=== PATIENT | female | born 1980 ===

== ENCOUNTER 2018-10-17 02:48 | Inpatient (IN) ==
[2018-10-17] MEDS ORDERED: SODIUM CHLORIDE 0.9% 1,000 ML IV STA (05:08)
[2018-10-17 05:25] LABS: Basophils % 0.5 % (0.0-0.8); Eosinophils # 0.1 10*3/uL (0.0-0.87); Eosinophils % 1.9 % (0.00-10.9); Hematocrit 36.6 VOL% (35.7-47.0); Immature Granulocytes % 0.3 %; Immature Granulocytes Absolute 0.02 #; Lymphocytes # 2.2 10*3/uL (1.4-4.0); Lymphocytes % 37.7 % (21.3-54.2); Mean Corpuscular HGB Conc 32.8 GM/DL (32-36); Mean Corpuscular Volume 86.1 FL (87-102); Mean Platelet Volume 10.9 FL (9.6-12.0); Monocytes % 6.6 % (1.7-12.7); Platelet Count 216 T/CUMM (130-400); Red Blood Count 4.25 MC/CUMM (3.8-5.5); Red Cell Distribution Width 14.1 % (9.3-17.3); White Blood Count 5.8 T/CUMM (4-12)
[2018-10-17 05:44] LABS: Alanine Aminotransferase 20 U/L (13-56); Albumin 3.3 G/DL (3.4-5.0); Alkaline Phosphatase 44 U/L (45-117); Aspartate Amino Transferase 11 U/L (0-37); Bilirubin,Total < 0.39 MG/DL (0.2-1.0); Blood Urea Nitrogen 32 MG/DL (7-18); Calcium 8.2 MG/DL (8.5-10.1); Glucose 88 MG/DL (74-106); Osmolality,Calculated 284.4 MOS/KG (273-304); Total Protein 7.5 G/DL (6.4-8.3)
[2018-10-17] MEDS ORDERED: GLUCAGON 1 MG VIAL IM PRN (08:06)
[2018-10-17] MEDS ORDERED: HYDROmorphone 2 MG/1 ML VIAL IV PRN (08:06)
[2018-10-17] MEDS ORDERED: ONDANSETRON 4 MG/2 ML VIAL IV PRN (08:06)
[2018-10-17] MEDS ORDERED: traZODone 50 MG TABLET PO PRN (08:06)
[2018-10-17] MEDS ORDERED: hydrALAZINE 20 MG/1 ML VIAL IV PRN (08:06)
[2018-10-17] MEDS ORDERED: DEXTROSE 10% 25 GM/250 ML BAG IV PRN (08:06)
[2018-10-17] MEDS: SODIUM CHLORIDE 0.9% 1,000 ML IV SCH (09:15)
[2018-10-17 11:59] LABS: PT Patient Result 11.1 SECS
[2018-10-17] MEDS ORDERED: INSULIN LISPRO 100 UNIT/ML SUBCUT SCH (12:00)
[2018-10-17] MEDS ORDERED: DIAZEPAM 5 MG TABLET PO ONE (13:53)
[2018-10-17] MEDS: INSULIN LISPRO 100 UNIT/ML SUBCUT SCH ×2 (18:06→21:27)
[2018-10-17] MEDS: METOPROLOL TARTRATE 25 MG TABLET PO SCH (21:27)
[2018-10-17] MEDS: ACETYLCYSTEINE 600 MG CAPSULE PO SCH (21:28)
[2018-10-18] MEDS: SODIUM CHLORIDE 0.9% 1,000 ML IV SCH ×2 (00:18→20:52)
[2018-10-18 05:27] LABS: Basophils % 0.7 % (0.0-0.8); Eosinophils # 0.1 10*3/uL (0.0-0.87); Eosinophils % 1.3 % (0.00-10.9); Hematocrit 31.7 VOL% (35.7-47.0); Hemoglobin 10.1 GM/DL (12.0-16.0); Immature Granulocytes % 0.4 %; Immature Granulocytes Absolute 0.02 #; Lymphocytes # 1.8 10*3/uL (1.4-4.0); Lymphocytes % 32.7 % (21.3-54.2); Mean Corpuscular HGB Conc 31.9 GM/DL (32-36); Mean Corpuscular Volume 86.6 FL (87-102); Mean Platelet Volume 11.2 FL (9.6-12.0); Monocytes % 7.1 % (1.7-12.7); Neutrophils % 57.8 % (38.7-73.9); Platelet Count 198 T/CUMM (130-400); Red Blood Count 3.66 MC/CUMM (3.8-5.5); Red Cell Distribution Width 14.1 % (9.3-17.3); White Blood Count 5.5 T/CUMM (4-12)
[2018-10-18 06:06] LABS: Calcium 7.6 MG/DL (8.5-10.1); Osmolality,Calculated 292.1 MOS/KG (273-304)
[2018-10-18 06:52] LABS: Hepatitis B Core IgM Quant 0.09 Index; Hepatitis B Surface Ag Quant < 0.10 Index; Hepatitis B Surface Ag Result Negative (Negative); Hepatitis C Virus Ab Quant 0.12 Index; Hepatitis C Virus Ab Result Negative (Negative)
[2018-10-18] MEDS: METOPROLOL TARTRATE 25 MG TABLET PO SCH ×2 (08:45→20:51)
[2018-10-18] MEDS: ACETYLCYSTEINE 600 MG CAPSULE PO SCH ×2 (08:45→20:51)
[2018-10-18] MEDS: INSULIN LISPRO 100 UNIT/ML SUBCUT SCH ×4 (08:46→20:51)
[2018-10-18] MEDS: ENOXAPARIN 40 MG/0.4 ML SYRINGE SUBCUT SCH (14:09)
[2018-10-19] MEDS: INSULIN LISPRO 100 UNIT/ML SUBCUT SCH ×4 (07:36→21:21)
[2018-10-19] MEDS: SODIUM CHLORIDE 0.9% 1,000 ML IV SCH ×2 (09:13→21:18)
[2018-10-19] MEDS: METOPROLOL TARTRATE 25 MG TABLET PO SCH ×2 (09:14→21:17)
[2018-10-19] MEDS: ACETYLCYSTEINE 600 MG CAPSULE PO SCH ×2 (09:14→21:21)
[2018-10-19] MEDS: ENOXAPARIN 40 MG/0.4 ML SYRINGE SUBCUT SCH (14:34)
[2018-10-20 04:58] LABS: Basophils % 0.5 % (0.0-0.8); Eosinophils # 0.1 10*3/uL (0.0-0.87); Eosinophils % 1.9 % (0.00-10.9); Immature Granulocytes % 0.4 %; Immature Granulocytes Absolute 0.02 #; Lymphocytes # 2.5 10*3/uL (1.4-4.0); Lymphocytes % 43.8 % (21.3-54.2); Mean Corpuscular HGB Conc 32.3 GM/DL (32-36); Mean Corpuscular Volume 86.6 FL (87-102); Mean Platelet Volume 11.4 FL (9.6-12.0); Neutrophils % 47.4 % (38.7-73.9); Platelet Count 194 T/CUMM (130-400); Red Blood Count 3.58 MC/CUMM (3.8-5.5); Red Cell Distribution Width 14.1 % (9.3-17.3); White Blood Count 5.7 T/CUMM (4-12)
[2018-10-20 05:30] LABS: Calcium 7.6 MG/DL (8.5-10.1)
[2018-10-20] MEDS: METOPROLOL TARTRATE 25 MG TABLET PO SCH ×2 (08:25→21:08)
[2018-10-20] MEDS: INSULIN LISPRO 100 UNIT/ML SUBCUT SCH ×4 (08:26→21:07)
[2018-10-20] MEDS: SODIUM CHLORIDE 0.9% 1,000 ML IV SCH (09:22)
[2018-10-20] MEDS: ACETYLCYSTEINE 600 MG CAPSULE PO SCH ×2 (10:50→21:08)
[2018-10-20] MEDS: ENOXAPARIN 40 MG/0.4 ML SYRINGE SUBCUT SCH (14:02)
[2018-10-20] MEDS: POLYETHYLENE GLYCOL POWDER 17 GM PACK PO SCH (17:21)
[2018-10-20] MEDS: DOCUSATE SODIUM 100 MG CAPSULE PO SCH (21:08)
[2018-10-21] MEDS: INSULIN LISPRO 100 UNIT/ML SUBCUT SCH ×4 (08:27→20:29)
[2018-10-21] MEDS: METOPROLOL TARTRATE 25 MG TABLET PO SCH ×2 (08:27→20:28)
[2018-10-21] MEDS: DOCUSATE SODIUM 100 MG CAPSULE PO SCH ×2 (08:27→20:28)
[2018-10-21] MEDS: POLYETHYLENE GLYCOL POWDER 17 GM PACK PO SCH (08:27)
[2018-10-21] MEDS: ACETYLCYSTEINE 600 MG CAPSULE PO SCH ×2 (08:29→20:28)
[2018-10-21] MEDS: ENOXAPARIN 40 MG/0.4 ML SYRINGE SUBCUT SCH (14:10)
[2018-10-22] MEDS ORDERED: glyBURIDE 5 MG TABLET PO SCH (08:00)
[2018-10-22] MEDS: POLYETHYLENE GLYCOL POWDER 17 GM PACK PO SCH (10:36)
[2018-10-22] MEDS: INSULIN LISPRO 100 UNIT/ML SUBCUT SCH ×2 (10:36→14:22)
[2018-10-22] MEDS: DOCUSATE SODIUM 100 MG CAPSULE PO SCH (10:36)
[2018-10-22] MEDS: ACETYLCYSTEINE 600 MG CAPSULE PO SCH (10:36)
[2018-10-22] MEDS: METOPROLOL TARTRATE 25 MG TABLET PO SCH (10:42)
[2018-10-22 12:17] VITALS: BP 138/77
[2018-10-22] MEDS: ENOXAPARIN 40 MG/0.4 ML SYRINGE SUBCUT SCH (14:26)
== END 2018-10-22 13:52 | disposition home or self-care (01) | DRG 543 ==
LOC: EDBD → EDUNIT# → N.EDINP 02:48 → N.ED 02:48 → N.4E 06:43 → SUATTDRO 10-20 15:11
PROVIDERS: ADMIT Hospitalist; ATTEND Internal Medicine

== ENCOUNTER 2021-01-14 20:31 | Inpatient (IN) ==
[2021-01-14] MEDS ORDERED: cefTRIAXone 1,000 MG in SODIUM CHLORIDE 0.9% 100 ML IV STA (21:44)
[2021-01-14] MEDS ORDERED: SODIUM CHLORIDE 0.9% 500 ML IV STA (21:44)
[2021-01-14 22:17] LABS: Bilirubin,Urine Negative (Negative); Blood, Urine Large mg/dL (Negative); Glucose,Urine (UA) 50 mg/dL (Negative); Ketones,Urine Negative (Negative); Nitrite,Urine Negative (Negative); Protein,Urine 100 MG/DL; RBC,Urine 111998 /HPF (0-4); Urine Appearance CLOUDY (Clear); Urine Color Red (Yellow); Urine Specific Gravity 1.006 (1.001-1.035); Urine Urobilinogen < 2.0 EU/DL (0.2-1.0)
[2021-01-14 22:40] LABS: Basophils % 0.4 % (0.0-0.8); Eosinophils % 0.4 % (0.00-10.9); Hematocrit 20.4 VOL% (35.7-47.0); Immature Granulocytes % 1.5 %; Immature Granulocytes Absolute 0.08 #; Lymphocytes # 1.4 10*3/uL (1.4-4.0); Lymphocytes % 25.1 % (21.3-54.2); Mean Corpuscular HGB Conc 31.4 GM/DL (32-36); Mean Corpuscular Volume 100.5 FL (87-102); Mean Platelet Volume 10.1 FL (9.6-12.0); Monocytes % 13.9 % (1.7-12.7); NRBC # 0.02 10*3/uL; Neutrophils % 58.7 % (38.7-73.9); Platelet Count 162 T/CUMM (130-400); Red Blood Count 2.03 MC/CUMM (3.8-5.5); Red Cell Distribution Width 16.7 % (9.3-17.3); White Blood Count 5.5 T/CUMM (4-12)
[2021-01-14 22:45] LABS: Hemoglobin 6.4 GM/DL (12.0-16.0)
[2021-01-14 22:57] LABS: Alanine Aminotransferase 23 U/L (13-56); Albumin 3.1 G/DL (3.4-5.0); Alkaline Phosphatase 50 U/L (45-117); Aspartate Amino Transferase 21 U/L (0-37); Bilirubin,Total < 0.39 MG/DL (0.20-1.00); Blood Urea Nitrogen 36 MG/DL (7-18); Calcium 7.6 MG/DL (8.5-10.1); Carbon Dioxide 20 MMOL/L (21-32); Estimated Glom Filtration Rate 25 ML/MIN; Glucose 308 MG/DL (74-106); Osmolality,Calculated 296.5 MOS/KG (273-304); Potassium 4.6 MMOL/L (3.5-5.1); Sodium 139 MMOL/L (136-145); Total Protein 6.2 G/DL (6.4-8.2)
[2021-01-14] MEDS ORDERED: SODIUM CHLORIDE 0.9% 100 ML IV ONE (23:00)
[2021-01-14] MEDS ORDERED: cefTRIAXone 1,000 MG VIAL ONE (23:00)
[2021-01-14 23:05] LABS: INR 1.7; PT Patient Result 18.7 SECS (10.5-12.0)
[2021-01-14] MEDS ORDERED: SODIUM CHLORIDE 0.9% 1,000 ML IV PRN (23:11)
[2021-01-14] MEDS ORDERED: hydrALAZINE 20 MG/1 ML VIAL IV PRN (23:35)
[2021-01-14] MEDS ORDERED: guaiFENesin/DM ER 600-30 MG TABLET PO PRN (23:35)
[2021-01-14] MEDS ORDERED: diphenhydrAMINE CAP 25 MG CAPSULE PO PRN (23:35)
[2021-01-14] MEDS ORDERED: GLUCAGON 1 MG VIAL IM PRN (23:35)
[2021-01-14] MEDS ORDERED: DEXTROSE 50% 25 GM/50 ML VIAL IV PRN (23:35)
[2021-01-14] MEDS ORDERED: NICOTINE 21 MG/24 HR PATCH TRANSDERM PRN (23:35)
[2021-01-14] MEDS ORDERED: ZALEPLON 5 MG CAPSULE PO PRN (23:35)
[2021-01-15 02:12] LABS: Hypochromasia 1+; Platelet Estimate Normal
[2021-01-15 05:21] LABS: Basophils % 0.2 % (0.0-0.8); Eosinophils % 0.2 % (0.00-10.9); Hematocrit 22.6 VOL% (35.7-47.0); Hemoglobin 7.4 GM/DL (12.0-16.0); Immature Granulocytes % 1.5 %; Immature Granulocytes Absolute 0.06 #; Lymphocytes # 0.8 10*3/uL (1.4-4.0); Lymphocytes % 20.2 % (21.3-54.2); Mean Corpuscular HGB Conc 32.7 GM/DL (32-36); Mean Corpuscular Volume 96.2 FL (87-102); Mean Platelet Volume 10.4 FL (9.6-12.0); Monocytes % 16.1 % (1.7-12.7); NRBC # 0.03 10*3/uL; Neutrophils % 61.8 % (38.7-73.9); Platelet Count 112 T/CUMM (130-400); Red Blood Count 2.35 MC/CUMM (3.8-5.5); Red Cell Distribution Width 17.1 % (9.3-17.3); White Blood Count 4.1 T/CUMM (4-12)
[2021-01-15 05:38] LABS: Alanine Aminotransferase 21 U/L (13-56); Albumin 2.8 G/DL (3.4-5.0); Alkaline Phosphatase 43 U/L (45-117); Aspartate Amino Transferase 18 U/L (0-37); Bilirubin,Total < 0.39 MG/DL (0.20-1.00); Blood Urea Nitrogen 33 MG/DL (7-18); Calcium 7.2 MG/DL (8.5-10.1); Carbon Dioxide 20 MMOL/L (21-32); Estimated Glom Filtration Rate 30 ML/MIN; Glucose 235 MG/DL (74-106); Osmolality,Calculated 295.3 MOS/KG (273-304); Potassium 4.7 MMOL/L (3.5-5.1); Sodium 141 MMOL/L (136-145); Total Protein 5.7 G/DL (6.4-8.2)
[2021-01-15 06:24] LABS: Atypical Lymphocytes Few; Band Neutrophils 2 % (0-10); Eosinophils 1 % (0-10); Hypochromasia 1+; Lymphocytes 20 % (20-55); Nucleated Red Blood Cells 2 (0-5); Segmented Neutrophils 66 % (50-85); Total Cells Counted 100
[2021-01-15 06:25] LABS: Anisocytosis 1+; Microcytosis 1+; Ovalocytes Slight; Platelet Estimate Decreased
[2021-01-15] MEDS: SODIUM CHLORIDE 0.9% 1,000 ML IV SCH ×2 (07:30→12:55)
[2021-01-15] MEDS: INSULIN LISPRO 100 UNIT/ML SUBCUT SCH ×4 (07:48→20:51)
[2021-01-15] MEDS ORDERED: INFLUENZA VIRUS VACCINE 0.5 ML SYRINGE IM ONE (09:00)
[2021-01-15] MEDS: PANTOPRAZOLE 40 MG TABLET PO SCH (09:47)
[2021-01-15 11:17] LABS: Hemoglobin 8.6 GM/DL (12.0-16.0)
[2021-01-15] MEDS: cefTRIAXone 1,000 MG in SODIUM CHLORIDE 0.9% 100 ML IV ONE ×2 (11:24→11:49)
[2021-01-16] MEDS: SODIUM CHLORIDE 0.9% 1,000 ML IV SCH ×2 (02:17→17:26)
[2021-01-16 05:32] LABS: Basophils % 0.2 % (0.0-0.8); Eosinophils % 0.2 % (0.00-10.9); Hematocrit 26.2 VOL% (35.7-47.0); Hemoglobin 8.5 GM/DL (12.0-16.0); Immature Granulocytes % 0.5 %; Immature Granulocytes Absolute 0.02 #; Lymphocytes # 0.9 10*3/uL (1.4-4.0); Lymphocytes % 22.3 % (21.3-54.2); Mean Corpuscular HGB Conc 32.4 GM/DL (32-36); Mean Corpuscular Volume 93.2 FL (87-102); Mean Platelet Volume 9.7 FL (9.6-12.0); Monocytes % 19.9 % (1.7-12.7); NRBC # 0.04 10*3/uL; Neutrophils % 56.9 % (38.7-73.9); Red Blood Count 2.81 MC/CUMM (3.8-5.5); Red Cell Distribution Width 16.8 % (9.3-17.3); White Blood Count 4.1 T/CUMM (4-12)
[2021-01-16 05:37] LABS: Platelet Count 95 T/CUMM (130-400)
[2021-01-16 05:49] LABS: Calcium 7.3 MG/DL (8.5-10.1); Osmolality,Calculated 287.1 MOS/KG (273-304); Potassium 4.6 MMOL/L (3.5-5.1)
[2021-01-16 06:02] LABS: Lymphocytes 25 % (20-55); Nucleated Red Blood Cells 2 (0-5); Segmented Neutrophils 54 % (50-85); Total Cells Counted 100
[2021-01-16 06:03] LABS: Hypochromasia Slight; Microcytosis 1+; Ovalocytes Slight; Platelet Estimate Decreased
[2021-01-16 06:07] LABS: Atypical Lymphocytes Few
[2021-01-16] MEDS ORDERED: cefTRIAXone 1,000 MG in SODIUM CHLORIDE 0.9% 100 ML IV ONE ×2 (07:00→14:30)
[2021-01-16] MEDS: INSULIN LISPRO 100 UNIT/ML SUBCUT SCH ×4 (08:24→21:14)
[2021-01-16] MEDS: ONDANSETRON 4 MG/2 ML VIAL IV PRN (09:53)
[2021-01-16] MEDS: PANTOPRAZOLE 40 MG TABLET PO SCH (09:59)
[2021-01-16] MEDS ORDERED: fentaNYL 100 MCG/2 ML VIAL ONE (15:04)
[2021-01-16] MEDS ORDERED: MIDAZOLAM 2 MG/2 ML VIAL ONE (15:04)
[2021-01-16] MEDS ORDERED: LIDOCAINE 2% 5 ML VIAL ONE (15:04)
[2021-01-16] MEDS ORDERED: propofoL 200 MG/20 ML VIAL IV ONE (15:04)
[2021-01-16] MEDS ORDERED: SEVOFLURANE 1 UNIT/15 MINUTE INH ONE (17:08)
[2021-01-17] MEDS: ACETAMINOPHEN 325 MG TABLET PO PRN (00:23)
[2021-01-17] MEDS: SODIUM CHLORIDE 0.9% 1,000 ML IV SCH ×2 (02:24→16:00)
[2021-01-17 04:22] LABS: Basophils % 0.2 % (0.0-0.8); Eosinophils % 0.4 % (0.00-10.9); Hematocrit 25.9 VOL% (35.7-47.0); Hemoglobin 8.6 GM/DL (12.0-16.0); Immature Granulocytes % 0.5 %; Immature Granulocytes Absolute 0.03 #; Lymphocytes # 0.8 10*3/uL (1.4-4.0); Lymphocytes % 14.3 % (21.3-54.2); Mean Corpuscular HGB Conc 33.2 GM/DL (32-36); Mean Corpuscular Volume 92.8 FL (87-102); Mean Platelet Volume 9.8 FL (9.6-12.0); Monocytes % 19.2 % (1.7-12.7); NRBC # 0.02 10*3/uL; Neutrophils % 65.4 % (38.7-73.9); Platelet Count 93 T/CUMM (130-400); Red Blood Count 2.79 MC/CUMM (3.8-5.5); White Blood Count 5.5 T/CUMM (4-12)
[2021-01-17 04:50] LABS: Band Neutrophils 1 % (0-10); Eosinophils 2 % (0-10); Hypochromasia Slight; Lymphocytes 8 % (20-55); Nucleated Red Blood Cells 1 (0-5); Platelet Estimate Decreased; Segmented Neutrophils 77 % (50-85); Total Cells Counted 100
[2021-01-17 04:51] LABS: Osmolality,Calculated 274.8 MOS/KG (273-304); Potassium 4.6 MMOL/L (3.5-5.1)
[2021-01-17] MEDS: PANTOPRAZOLE 40 MG TABLET PO SCH (09:43)
[2021-01-17] MEDS: ONDANSETRON 4 MG/2 ML VIAL IV PRN ×2 (09:48→21:00)
[2021-01-17] MEDS: INSULIN LISPRO 100 UNIT/ML SUBCUT SCH ×4 (10:13→20:56)
[2021-01-17] MEDS ORDERED: MAGNESIUM HYDROXIDE 1200 MG PO PRN (14:39)
[2021-01-17] MEDS ORDERED: [UNRECOGNIZED DRUG - OTHER] PO PRN (14:39)
[2021-01-17] MEDS: BISACODYL 5 MG TABLET PO SCH ×2 (15:34→20:55)
[2021-01-18] MEDS: SODIUM CHLORIDE 0.9% 1,000 ML IV SCH (03:52)
[2021-01-18 05:05] LABS: Eosinophils % 0.5 % (0.00-10.9); Hematocrit 25.1 VOL% (35.7-47.0); Hemoglobin 8.2 GM/DL (12.0-16.0); Immature Granulocytes % 0.5 %; Immature Granulocytes Absolute 0.02 #; Lymphocytes # 0.8 10*3/uL (1.4-4.0); Lymphocytes % 18.9 % (21.3-54.2); Mean Corpuscular HGB Conc 32.7 GM/DL (32-36); Mean Corpuscular Volume 93.7 FL (87-102); Mean Platelet Volume 10.1 FL (9.6-12.0); Neutrophils % 65.1 % (38.7-73.9); Red Blood Count 2.68 MC/CUMM (3.8-5.5); Red Cell Distribution Width 15.7 % (9.3-17.3); White Blood Count 4.4 T/CUMM (4-12)
[2021-01-18 05:08] LABS: Platelet Count 100 T/CUMM (130-400)
[2021-01-18 05:24] LABS: Hypochromasia 1+; Microcytosis 1+; Platelet Estimate Decreased
[2021-01-18 05:28] LABS: Calcium 8.3 MG/DL (8.5-10.1); Osmolality,Calculated 278.7 MOS/KG (273-304); Potassium 4.8 MMOL/L (3.5-5.1)
[2021-01-18] MEDS ORDERED: ENOXAPARIN 40 MG/0.4 ML SYRINGE SUBCUT ONE (08:00)
[2021-01-18] MEDS: BISACODYL 5 MG TABLET PO SCH (09:40)
[2021-01-18] MEDS: INSULIN LISPRO 100 UNIT/ML SUBCUT SCH ×2 (10:19→12:44)
[2021-01-18] MEDS: ACETAMINOPHEN 325 MG TABLET PO PRN (10:52)
[2021-01-18 11:07] VITALS: BP 137/85
== END 2021-01-18 12:54 | disposition home or self-care (01) | DRG 951 ==
LOC: N.ED 20:31 → SUATTDRO 23:35 → N.EDINP 23:35 → N.4E 01-15 00:37
PROVIDERS: ADMIT Internal Medicine Geriatric Medicine; ATTEND Internal Medicine